=== PATIENT | male | born 1960 | race Caucasian/White ===

== ENCOUNTER 2020-06-09 09:09 | Emergency (ER) | payer MEDICAID ==
[~2020-06-09] VITALS: Ht 185.4 cm; Wt 90.0 kg
[2020-06-09 10:14] LABS: BASOPHILS % (AUTO) 0.4 % (0-1); EOSINOPHILS # (AUTO) 0.3 X10'3 (0-0.9); EOSINOPHILS % (AUTO) 2.4 % (0-6); HEMATOCRIT 44.8 % (42.0-52.0); HEMOGLOBIN 14.9 g/dl (14.0-17.9); LYMPHOCYTES # (AUTO) 1.5 X10'3 (1.1-4.8); LYMPHOCYTES % (AUTO) 12.8 % (21-51); MEAN CORPUSCULAR HEMOGLOBIN 30.5 PG (27.0-31.0); MEAN CORPUSCULAR HGB CONC 33.3 g/dL (33.0-36.5); MEAN CORPUSCULAR VOLUME 91.5 FL (78-98); MEAN PLATELET VOLUME 8.6 FL (7.4-10.4); MONOCYTES # (AUTO) 1.5 X10'3 (0-0.9); MONOCYTES % (AUTO) 13.3 % (2-12); NEUTROPHILS # (AUTO) 8.3 X10'3 (1.8-7.7); NEUTROPHILS % (AUTO) 71.1 % (42-75); PLATELET COUNT 337 X10'3 (140-440); RED BLOOD COUNT 4.89 X10'6 (4.70-6.10); RED CELL DISTRIBUTION WIDTH 13.4 % (11.5-14.5); WHITE BLOOD COUNT 11.6 X10'3 (4.5-11.0)
[2020-06-09 10:22] LABS: ALANINE AMINOTRANSFERASE 19 U/L (12-78); ALBUMIN 3.8 G/DL (3.4-5.0); ALKALINE PHOSPHATASE 54 IU/L (46-116); ANION GAP 10 (8-16); ASPARTATE AMINO TRANSFERASE 17 U/L (10-37); BILIRUBIN,TOTAL 0.8 MG/DL (0.1-1.0); BLOOD UREA NITROGEN 14 MG/DL (7-18); BUN/CREATININE RATIO 14.1 (5.4-32.0); CALCIUM 8.7 MG/DL (8.5-10.1); CHLORIDE 102 MMOL/L (99-107); CREATININE 0.99 MG/DL (0.60-1.10); GLUCOSE 110 MG/DL (70-104); POTASSIUM 4.5 MMOL/L (3.5-5.1); SODIUM 139 MMOL/L (135-145); TOTAL CARBON DIOXIDE 26.8 MMOL/L (24-32); TOTAL PROTEIN 7.8 G/DL (6.4-8.2); eGFR 78 ML/MIN
[2020-06-09 10:27] LABS: D-DIMER 0.65 MG/L FEU (0-0.50)
[2020-06-09] MEDS ORDERED: iohexol 350MG/ML 100ml bottle IV ONE (10:55)
--- NOTE | 2020-06-09 11:37 | NUR ---
To CT with tech
--- NOTE | 2020-06-09 11:47 | NUR ---
BACK FROM CT AT THIS TIME VIA WHEELCHAIR. NO SIGNS OF DISTRESS NOTED.
--- NOTE | 2020-06-09 12:12 | NUR ---
Pt resting comfortably in room, per Dr. Hernandez, second trop drawn now. Pt has had CT and VAS completed at this time.
[2020-06-09 13:00] VITALS: BP 113/74
== END 2020-06-09 13:38 | disposition home or self-care (01) ==
LOC: ER 09:11
DX: R07.89 Other chest pain (principal)
CPT/HCPCS: 36415; 71045; 71275; 80053; 83880; 84484; 85025; 85379; 93005; 93971; 99285; Q9967

== ENCOUNTER 2023-03-25 03:43 | Emergency (ER) | payer MEDICAID ==
[~2023-03-25] VITALS: Ht 180.3 cm; Wt 87.4 kg
[2023-03-25 04:20] LABS: BASOPHILS # (AUTO) 0.1 X10'3 (0-0.2); BASOPHILS % (AUTO) 1.2 % (0-1); EOSINOPHILS # (AUTO) 0.3 X10'3 (0-0.9); EOSINOPHILS % (AUTO) 4.4 % (0-6); HEMATOCRIT 39.5 % (42.0-52.0); HEMOGLOBIN 13.4 g/dl (14.0-17.9); LYMPHOCYTES # (AUTO) 1.2 X10'3 (1.1-4.8); LYMPHOCYTES % (AUTO) 16.4 % (21-51); MEAN CORPUSCULAR HEMOGLOBIN 31.6 PG (27.0-31.0); MEAN CORPUSCULAR HGB CONC 34.1 g/dL (33.0-36.5); MEAN CORPUSCULAR VOLUME 92.7 FL (78-98); MEAN PLATELET VOLUME 8.1 FL (7.4-10.4); MONOCYTES # (AUTO) 1.2 X10'3 (0-0.9); MONOCYTES % (AUTO) 16.4 % (2-12); NEUTROPHILS # (AUTO) 4.7 X10'3 (1.8-7.7); NEUTROPHILS % (AUTO) 61.6 % (42-75); PLATELET COUNT 325 X10'3 (140-440); RED BLOOD COUNT 4.26 X10'6 (4.70-6.10); RED CELL DISTRIBUTION WIDTH 15.2 % (11.5-14.5); WHITE BLOOD COUNT 7.6 X10'3 (4.5-11.0)
[2023-03-25 04:30] LABS: ALANINE AMINOTRANSFERASE 37 U/L (12-78); ALBUMIN 3.7 G/DL (3.4-5.0); ALKALINE PHOSPHATASE 66 IU/L (46-116); ANION GAP 9 (8-16); ASPARTATE AMINO TRANSFERASE 20 U/L (10-37); BILIRUBIN,TOTAL 0.5 MG/DL (0.1-1.0); BLOOD UREA NITROGEN 19 MG/DL (7-18); BUN/CREATININE RATIO 18.3 (10.0-20.0); CALCIUM 9.3 MG/DL (8.5-10.1); CHLORIDE 102 MMOL/L (99-107); CREATININE 1.04 MG/DL (0.60-1.10); GLUCOSE 124 MG/DL (70-104); POTASSIUM 4.1 MMOL/L (3.5-5.1); SODIUM 136 MMOL/L (135-145); TOTAL CARBON DIOXIDE 24.7 MMOL/L (24-32); TOTAL PROTEIN 7.4 G/DL (6.4-8.2); eCRCL 79 ML/MIN; eGFR 73 ML/MIN
[2023-03-25 04:37] LABS: PRO BRAIN NATRIURETIC PEPTIDE 69 PG/ML (0-125)
[2023-03-25] MEDS ORDERED: acetaminophen 325mg tablet PO ONE (05:10)
[2023-03-25] MEDS ORDERED: LORazepam 2 mg/ml vial IV ONE (05:10)
[2023-03-25] MEDS ORDERED: nitroGLYCERIN 0.2mg/hour patch TD ONE (05:10)
[2023-03-25] MEDS ORDERED: metoclopramide 5 mg/ml inj IV ONE (05:10)
[2023-03-25] MEDS ORDERED: morphine 4 MG/ML inj SYRINge IV ONE (05:10)
[2023-03-25] MEDS ORDERED: famotidine/PF 10 mg/ml inj IV ONE (05:10)
[2023-03-25] MEDS ORDERED: aspirin 81mg tab.chew PO ONE (05:10)
[2023-03-25] MEDS ORDERED: normal saline 1000ML IV soln IVB ONE (05:10)
[2023-03-25] MEDS ORDERED: iohexol 350 MG/ML 50ML vial IV ONE (05:22)
[2023-03-25] MEDS ORDERED: iohexol 350MG/ML 100ml bottle IV ONE (05:22)
[2023-03-25 07:15] VITALS: BP 133/78; PULSE 82; O2SAT 99
[2023-03-25 07:20] VITALS: RESP 16
--- NOTE | 2023-03-25 07:53 | NUR ---
0637 recieved report from sterling clark assuming care of pt
[2023-03-25 07:59] LABS: APTT 27 SECONDS (22-32); INR 1.1 INR; PROTHROMBIN TIME 11.4 SECONDS (9.0-12.0)
[2023-03-25 08:08] LABS: PHOSPHORUS 4.3 MG/DL (2.3-4.5)
[2023-03-25] MEDS ORDERED: IBUP-1984 PO ×3 (08:46→08:58)
[2023-03-25 09:14] VITALS: TEMP 97.8
== END 2023-03-25 09:17 | disposition home or self-care (01) ==
LOC: ER 03:44
DX: M54.2 Cervicalgia (principal); R07.89 Other chest pain
CPT/HCPCS: 36415; 70498; 71045; 71275; 80053; 83690; 83880; 84100; 84484; 85025; 85610; 85730; 93005; 96374; 96375; 99285; J2060; J2270; J2765; J3490; J7030; Q9967; 70496; 96361

== ENCOUNTER 2024-11-14 10:24 | Emergency (ER) | payer MEDICAID ==
[~2024-11-14] VITALS: Ht 180.3 cm; Wt 106.5 kg
[~2024-11-14 10:24] MED LIST: IBUP-1984 PO
[2024-11-14 10:27] VITALS: BP 147/72; PULSE 102; RESP 18; TEMP 97.6; O2SAT 97
--- NOTE | 2024-11-14 13:55 | Physician Documentation ---
History of Present Illness ~ Chief Complaint: Groin Pain Stated Complaint: GROIN PAIN Time Seen by MD: 12:12 Primary Medical Doctor: Dr. Montgomery, [facility] This 64-year-old male presents with right groin pain progressively worsening over the last 2-3 weeks though present for the last several months, patient reports he has received a workup outpatient through his primary care in [facility] though without a definitive result, though patient reports he has now moved to this area from [facility]. Patient reports history of nondistended right testicle and prostate cancer treated in 2021. Patient reports no abdominal pain and no fever. Patient reports no other acute symptoms or concerns including no dysuria. Medication Reconciliation Allergies: Coded Allergies: No Known Allergies (Unverified , 11/14/24) Scheduled Ibuprofen* (Motrin*), 400 MG PO Q6H Sulfamethoxazole/Trimethoprim (Bactrim Ds Tablet), 1 TAB PO Q12H Past Medical History Past Medical History: *CANCER* (Prostate) Smoking Status: Never smoker Review of Systems ROS Groin pain as stated above in the HPI, otherwise all systems are reviewed and negative. Physical Exam Vital Signs: Temperature: 97.6, Source: Temporal, Heart Rate: 102, Respiratory Rate: 18, BP: 147/72, Pulse Oximetry: 97, Weight: 106.450 Physical Exam VITALS: Reviewed and as above. GENERAL: Alert, nontoxic appearing, no apparent distress. RESPIRATORY: No increased work of breathing, no respiratory distress, speaking in full clear sentences GI: Nondistended, soft, nontender to palpation, no rebound, no guarding, bowel sounds present : Left testicle nontender to palpation, right scrotum no mass felt with testicle absent, tenderness to palpation into the pelvic ring. Progress Results/Orders Results/Orders Orders - BREANNE COLINDRES Us Testic/W/Duplex (11/14/24 13:47) Completed Orders - BREANNE COLINDRES Acetaminophen 325mg Tablet (Tylenol Tabl (11/14/24 13:50) Us Testic/W/Duplex (11/14/24 13:47) Cbc/Diff (11/14/24 13:47) CMP (11/14/24 13:47) Medications Received in ER Medications (Trade) Dose Ordered Sig/Vincent Route PRN Reason Start Time Stop Time Status Last Admin Dose Admin (Tylenol tablet) 975 mg ONCE ONCE PO 11/14/24 13:50 11/14/24 13:51 DC 11/14/24 14:38 975 MG Vital Signs 11/14/24 11/14/24 10:27 12:45 Temp 97.6 Pulse 102 Resp 18 B/P (MAP) 147/72 Pulse Ox 97 Laboratory Tests Test 11/14/24 14:03 White Blood Count 6.3 Red Blood Count 5.66 Hemoglobin 16.5 Hematocrit 49.2 Mean Corpuscular Volume 87.0 Mean Corpuscular Hemoglobin 29.2 Mean Corpuscular Hemoglobin Concent 33.6 Red Cell Distribution Width 15.7 H Platelet Count 286 Mean Platelet Volume 8.4 Neutrophils (%) (Auto) 59.6 Lymphocytes (%) (Auto) 21.6 Monocytes (%) (Auto) 13.7 H Eosinophils (%) (Auto) 3.9 Basophils (%) (Auto) 1.2 H Neutrophils # (Auto) 3.8 Lymphocytes # (Auto) 1.4 Monocytes # (Auto) 0.9 Eosinophils # (Auto) 0.2 Basophils # (Auto) 0.1 CBC Comment Sodium Level 136 Potassium Level 4.8 Chloride Level 101 Carbon Dioxide Level 25.0 Anion Gap 10 Blood Urea Nitrogen 22 H Creatinine 1.34 H Estimated GFR/1.73 m2 54 BUN/Creatinine Ratio 16.4 Glucose Level 123 H Calcium Level 8.3 L Total Bilirubin 1.2 H Aspartate Amino Transf (AST/SGOT) 35 Alanine Aminotransferase (ALT/SGPT) 57 Alkaline Phosphatase 64 Total Protein 7.6 Albumin 3.8 Globulin 3.8 Albumin/Globulin Ratio 1.0 L Chemistry Comments EKG/XRAY/CT/US/VASC/MRI Ultrasound : Impression ULTRASOUND OF SCROTUM AND CONTENTS. INDICATION: Right Groin Pain COMPARISON: None TECHNIQUE: Multiple real-time grayscale sonographic and color and duplex Doppler images of the scrotum and its contents were obtained. FINDINGS: The right testicle measures 2.0 x 1.3 x 1.9 cm. The left testicle measures 3.3 x 1.9 x 2.5 cm. Hypoechoic structure in the right testicle measures 0.3 cm possibly representing a spermatocele. Otherwise, Both testicles demonstrate homogeneous echotexture without evidence of focal lesions. The right epididymal head measures 1.1 cm. The left epididymal head measures 1.3 cm. Subsequent color and duplex Doppler interrogation of the testes demonstrated s ymmetric normal vascular flow to both testicles. No focal areas of hyperemia were seen. IMPRESSION: Right epididymis is heterogeneous in appearance possibly representing epididymitis. Clinical correlation advised. Electronically Signed by:OWEN MCCRAY MD Date & Time: 11/14/24 1501 Dictated by: OWEN MCCRAY MD Dictation date and time: 11/14/24 1501 Medical Decision Making Findings This 64-year-old male with history of prostate cancer and undescended right testicle presented with several months of right groin pain that has recently worsened, physical exam demonstrated pain in the pelvic ring where undescended testicle dislocated, ultrasound of the area did demonstrate evidence of epididymitis without evidence of testicular torsion, though left testicle was nontender and had a normal exam. Remainder of physical exam was benign and labs did not demonstrate evidence of systemic infection, or significant metabolic or electrolyte derangement. Vital signs are stable. Patient is appropriate for outpatient follow up. Patient discharged on course of antibiotics for epididymitis and is to follow up with his urologist Dr. Gipson along with his primary care provider for further workup. Urinary Diff Dx:Considerations: Include: Impaction, Musculoskeletal pain, Pancr eatitis, Prostatitis, Pyelonephritis Genital Diff Dx:Considerations: Include: Abscess, Cellulitis, Entrapment injury, Arianne's gangrene, Foreign body, Hydrocele, Inguinal hernia, Testicular torsion, Urinary retention, UTI Departure Disposition: HOME / SELF CARE / HOMELESS Impression: Primary Impression: Epididymitis Condition: Improved Discharge Instructions: Epididymitis Additional Instructions: Please take the antibiotics as prescribed, follow up with the primary care provider and Dr. Gipson in the next few days. Please return to the emergency department for any new or worsening concerning symptoms including but not limited to increased pain or if you develop a fever. Referrals: NO PRIMARY CARE PROVIDER (PCP) Prescriptions Sulfamethoxazole/Trimethoprim (Bactrim Ds Tablet) 800 Mg-160 Mg Tablet 1 TAB PO Q12H for 10 Days, #20 TAB Prov: BREANNE COLINDRES 11/14/24 Education Educated: Patient Educated regarding: diagnosis, treatment, prognosis, need for follow up Signature Scribe Signature: No scribe Attestation: The note accurately reflects work and decisions made by me.SHREYAS Gabriel 11/14/24 21:43 BREANNE COLINDRES November 14, 2024 13:54
[2024-11-14 14:16] LABS: BASOPHILS # (AUTO) 0.1 X10'3 (0-0.2); BASOPHILS % (AUTO) 1.2 % (0-1); EOSINOPHILS # (AUTO) 0.2 X10'3 (0-0.9); EOSINOPHILS % (AUTO) 3.9 % (0-6); HEMATOCRIT 49.2 % (42.0-52.0); HEMOGLOBIN 16.5 g/dl (14.0-17.9); LYMPHOCYTES # (AUTO) 1.4 X10'3 (1.1-4.8); LYMPHOCYTES % (AUTO) 21.6 % (21-51); MEAN CORPUSCULAR HEMOGLOBIN 29.2 PG (27.0-31.0); MEAN CORPUSCULAR HGB CONC 33.6 g/dL (33.0-36.5); MEAN PLATELET VOLUME 8.4 FL (7.4-10.4); MONOCYTES # (AUTO) 0.9 X10'3 (0-0.9); MONOCYTES % (AUTO) 13.7 % (2-12); NEUTROPHILS # (AUTO) 3.8 X10'3 (1.8-7.7); NEUTROPHILS % (AUTO) 59.6 % (42-75); PLATELET COUNT 286 X10'3 (140-440); RED BLOOD COUNT 5.66 X10'6 (4.70-6.10); RED CELL DISTRIBUTION WIDTH 15.7 % (11.5-14.5); WHITE BLOOD COUNT 6.3 X10'3 (4.5-11.0)
[2024-11-14 14:32] LABS: ALANINE AMINOTRANSFERASE 57 U/L (12-78); ALBUMIN 3.8 G/DL (3.4-5.0); ALKALINE PHOSPHATASE 64 IU/L (46-116); ANION GAP 10 (8-16); ASPARTATE AMINO TRANSFERASE 35 U/L (10-37); BILIRUBIN,TOTAL 1.2 MG/DL (0.1-1.0); BLOOD UREA NITROGEN 22 MG/DL (7-18); BUN/CREATININE RATIO 16.4 (10.0-20.0); CALCIUM 8.3 MG/DL (8.5-10.1); CHLORIDE 101 MMOL/L (99-107); CREATININE 1.34 MG/DL (0.60-1.10); GLUCOSE 123 MG/DL (70-104); POTASSIUM 4.8 MMOL/L (3.5-5.1); SODIUM 136 MMOL/L (135-145); TOTAL PROTEIN 7.6 G/DL (6.4-8.2); eCRCL 60 ML/MIN; eGFR 54 ML/MIN
[2024-11-14] MEDS: acetaminophen 325mg tablet PO ONE (14:38)
--- NOTE | 2024-11-14 15:04 | RADIOLOGY REPORT ---
ULTRASOUND OF SCROTUM AND CONTENTS. INDICATION: Right Groin Pain COMPARISON: None TECHNIQUE: Multiple real-time grayscale sonographic and color and duplex Doppler images of the scrotu m and its contents were obtained. FINDINGS: The right testicle measures 2.0 x 1.3 x 1.9 cm. The left testicle measures 3.3 x 1.9 x 2.5 cm. Hypoechoic structure in the right testicle measures 0.3 cm possibly representing a spermatocele. Oth erwise, Both testicles demonstrate homogeneous echotexture without evidence of focal lesions. The right epididymal head measures 1.1 cm. The left epididymal head measures 1.3 cm. Subsequent color and duplex Doppler interrogation of the testes demonstrated symmetric normal vascula r flow to both testicles. No focal areas of hyperemia were seen. IMPRESSION: Right epididymis is heterogeneous in appearance possibly representing epididymitis. Clinical correlat ion advised.
[2024-11-14] MEDS ORDERED: SULF1TAB49 PO (15:31)
== END 2024-11-14 15:44 | disposition home or self-care (01) ==
LOC: ER 10:25
DX: N45.1 Epididymitis (principal); Z79.899 Other long term (current) drug therapy
CPT/HCPCS: 36415; 76870; 80053; 85025; 93976; 99284

== ENCOUNTER 2025-03-18 18:52 | Inpatient (IN) | payer MEDICAID ==
[~2025-03-18] VITALS: Ht 180.3 cm; Wt 109.1 kg
--- NOTE | 2025-03-18 19:09 | ELECTROCARDIOGRAPH REPORT ---
[facility] Test Date: 2025-03-18 Test Time: 18:56:37 Pat Name: JOSLYN BISHOP Department: EMERGENCY ROOM Room: [place] [address] Gender: M Account General Manager: PM : 1960 Requested By: ELLE NOBLE Order Number: [id number] Reading MD: Dr. Clarence Wong Measurements Intervals [place] Rate: 68 P: 62 CO: 160 QRS: 57 QRSD: 73 T: 70 QT: 369 QTc: 393 Interpretive Statements Sinus rhythm Electronically Signed On 03-28-2025 21:53:[address] Clarence Wong Please click the below link to view image of tracing.
[2025-03-18 19:33] LABS: MEAN PLATELET VOLUME 8.3 FL (7.4-10.4); RED CELL DISTRIBUTION WIDTH 13.7 % (11.5-14.5)
[2025-03-18 19:42] LABS: CREATININE 1.24 MG/DL (0.60-1.10); TOTAL CARBON DIOXIDE 28.5 MMOL/L (24-32); eCRCL 65 ML/MIN; eGFR 59 ML/MIN
[2025-03-18 19:51] LABS: PRO BRAIN NATRIURETIC PEPTIDE 117 PG/ML (0-125)
--- NOTE | 2025-03-18 19:56 | RADIOLOGY REPORT ---
CHEST RADIOGRAPH Indication: CP Technique: Single frontal view of the chest was obtained COMPARISON: XR CHEST 1 VIEW on DOS: 06/07/24, CTA CHEST on DOS: 03/24/24, XR CHEST 2 VIEWS on DOS: 03/24/24, CT- LOWDOSE LUNG CANCER SCREEN on DOS: 10/21/23, XR CHEST 1 VIEW on DOS: 07/10/23 FINDINGS: Lungs and pleural spaces are clear. Cardiac silhouette and lupe are within normal limits. Bones and soft tissues demonstrate no significant abnormality. IMPRESSION: 1. No acute disease.
--- NOTE | 2025-03-18 20:13 | Physician Documentation ---
History of Present Illness ~ Chief Complaint: Chest Wall Pain Stated Complaint: ABD PAIN AND NUMBNESS ON LEFT SIDE Time Seen by MD: 20:12 Primary Medical Doctor: Dr. Montgomery, [facility] Patient presents to the emergency room with one-week history of abdominal pain and no paresthesias of the left abdomen. No prior instances. He does endorse some constipation over the past month. No weakness. No stumbling. Medication Reconciliation Allergies: Coded Allergies: No Known Allergies (Unverified , 11/14/24) Scheduled Ibuprofen* (Motrin*), 400 MG PO Q6H Miscellaneous Medications Rivaroxaban (Xarelto), (Reported) Past Medical History Past Medical History: *CANCER* Review of Systems ROS All review of systems negative except as per [facility] Physical Exam Vital Signs: Temperature: 98.3, Heart Rate: 88, Respiratory Rate: 14, BP: 156/98, Pulse Oximetry: 98, Weight: 109.090 Oxygen Flow Rate: 0 Physical Exam General: Patient is awake, alert, oriented x4 in no acute distress and well appearing.~ Head: Normocephalic and atraumatic. Eyes: Conjunctival normal. EOMI. PERRL. ENT: Mucous membranes moist. Neck: Supple, trachea is midline. Chest: Clear to auscultation bilaterally without rales, rhonchi, or wheezes. There is no accessory muscle use or retractions. Cardiac: RRR without murmurs, gallops, or rubs. Abd: Soft, nondistended, nontender, with normoactive bowel sounds. No guarding, rebound, or rigidity. Neuro: Cranial nerves II-XII grossly intact. No focal neuro deficits. Patient ambulating without difficulty. Progress Results/Orders Results/Orders Orders - MATTHEW LARSON MD Straight Cath For Urine Sample (03/18/25 18:56) Chest,Single View (03/18/25 19:40) Monitor (03/18/25 19:08) Saline Lock (03/18/25 19:08) Oxygen (03/18/25 19:08) Page Hospitalist (03/18/25 20:52) Fill Out Med Reconciliation (03/18/25 20:52) Completed Orders - MATTHEW LARSON MD Urinalysis, Cult If Indicated (03/18/25 18:56) Cbc/Diff (03/18/25 18:56) Lipase (03/18/25 18:56) CMP (03/18/25 18:56) Chest,Single View (03/18/25 19:40) BMP (03/18/25 19:08) PBNP (03/18/25 19:08) Electrocardiogram (03/18/25 19:08) Hs Troponin I W Calculations (03/18/25 19:08) Hs Troponin I W Calculations (03/18/25 21:08) Hs Troponin I W Calculations (03/18/25 22:08) Hgb A1c (03/18/25 19:10) MG (03/18/25 19:10) Vital Signs 03/18/25 03/18/25 03/18/25 19:03 20:47 21:00 Temp 98.3 Pulse 88 76 Resp 14 18 16 B/P (MAP) 156/98 Pulse Ox 98 98 O2 Flow Rate 0 0 Laboratory Tests Test 03/18/25 19:10 03/18/25 20:59 03/18/25 21:50 03/18/25 21:53 White Blood Count 7.3 Red Blood Count 5.14 Hemoglobin 16.4 Hematocrit 47.9 Mean Corpuscular Volume 93.1 Mean Corpuscular Hemoglobin 32.0 H Mean Corpuscular Hemoglobin Concent 34.3 Red Cell Distribution Width 13.7 Platelet Count 336 Mean Platelet Volume 8.3 Neutrophils (%) (Auto) 53.2 Lymphocytes (%) (Auto) 24.6 Monocytes (%) (Auto) 12.8 H Eosinophils (%) (Auto) 8.1 H Basophils (%) (Auto) 1.3 H Neutrophils # (Auto) 3.9 Lymphocytes # (Auto) 1.8 Monocytes # (Auto) 0.9 Eosinophils # (Auto) 0.6 Basophils # (Auto) 0.1 CBC Comment Prothrombin Time 11.6 INR International Normalized Ratio 1.1 Activated Partial Thromboplast Time 30 D-Dimer 0.37 D-Dimer Comment Coagulation Comments Sodium Level 140 Potassium Level 4.4 Chloride Level 102 Carbon Dioxide Level 28.5 Anion Gap 10 Blood Urea Nitrogen 19 H Creatinine 1.24 H Estimated GFR/1.73 m2 59 BUN/Creatinine Ratio 15.3 Glucose Level 109 H Hemoglobin A1c 6.0 Calcium Level 9.0 Magnesium Level 2.0 Total Bilirubin 0.8 Aspartate Amino Transf (AST/SGOT) 36 Alanine Aminotransferase (ALT/SGPT) 64 Alkaline Phosphatase 65 Troponin I High Sensitivity 5 5 6 Pro-B-Type Natriuretic Peptide 117 Total Protein 7.9 Albumin 3.8 Globulin 4.1 Albumin/Globulin Ratio 0.9 L Lipase 26 Chemistry Comments Troponin I High Sens Percent Delta 0 20 Troponin I Hi Sens Absolute Change 0 1 Urine Specimen Description Urinal Urine Color Yellow Urine Clarity Clear Urine pH 5.5 Urine Specific [place] 1.020 Urine Protein Negative Urine Glucose (UA) Negative Urine Ketones Negative Urine Occult Blood Negative Urine Nitrite Negative Urine Bilirubin Negative Urine Urobilinogen 0.2 Urine Leukocyte Esterase Negative Urine Culture Indicated Not ind Volume Urine Centrifuged 10 ml Urine Comment Urine Opiates Screen Negative Urine Methadone Screen Negative Urine Fentanyl Screen Negative Urine Barbiturates Screen Negative Urine Phencyclidine Screen Negative Urine Amphetamines Screen Negative Urine Benzodiazepines Screen Negative Urine Cocaine Screen Negative Urine Cannabinoids Screen Negative Drug Screen Comment Medical Decision Making Findings Patient presented to the emergency room with abdominal pain and paresthesia in his left side. Differentials include transverse myelitis, multiple sclerosis, stroke, radiculopathy therefore neurologist consulted who recommends MRI. P atient does not have an ability to follow up outpatient. Departure Admitted to Inpatient Unit: yes, to hospitalist Impression: Primary Impression: Paresthesias Referrals: NO PRIMARY CARE PROVIDER (PCP) Signature Scribe Signature: No scribe Attestation: The note accurately reflects work and decisions made by me.Matthew Larson MD 03/18/25 20:53 MATTHEW LARSON MD Mar 18, 2025 20:13
--- NOTE | 2025-03-18 20:56 | [facility] CONSULT REPORT ---
[facility] Procedure Note [facility] Procedure Note Consult [facility] Note # Demographics Consult Type: General Neurology Patient Location: Emergency Room First Name: JOSLYN Last Name: EDNA Date of : 1960 Age: 64 Gender: Male Facility: [facility] Time of Initial Page (): 03/18/2025 20:24 First Contact with Site (): 03/18/2025 20:24 # HPI Chief Complaint: - numbness History: 64 y/o M presented with numbness in the L lateral torso x 1 week. He had some b/l anterior abdominal pain prior to it starting. He states he has some pain starting around the breast bone centrally with associated numbness radiating down the L torso and around to the L side of his back. He has some neck pain. He denies recent fevers, flu like symptoms but does endorse sick contacts. He has some numbness radiating down the L leg associated with pain which starts in the hip and goes down the leg. Denies weakness, slurred speech, word finding difficulty, headaches, difficulty ambulating, trauma to the back or lifting anything heavier but says he started splitting firewood a few weeks ago which is different than his routine. # Scores Time of exam and NIHSS (): 03/18/2025 20:36 Level of Consciousness 1a: [0] = Alert; keenly responsive LOC Questions 1b: [0] = Answers both questions correctly LOC Commands 1c: [0] = Performs both tasks correctly Best Gaze 2: [0] = Normal Visual 3: [0] = No visual loss Facial Palsy 4: [0] = Normal symmetrical movements Motor Arm Left 5a: [0] = No drift Motor Arm Right 5b: [0] = No drift Motor Leg Left 6a: [0] = No drift Motor Leg Right 6b: [0] = No drift Limb Ataxia 7: [0] = Absent Sensory 8: [0] = Normal Best Language 9: [0] = No aphasia Dysarthria 10: [0] = Normal Extinction and Inattention 11: [0] = No abnormality NIHSS Total: 0 # Exam SBP: 156 DBP: 98 # PMH-FH-SH Past Medical History: PE Social History: prior meth user # Assessment Impression: - Radiculopathy (numbness starts in T4 area) vs. transverse myelitis vs. cardiac given central chest pain # Plan Labs: - troponin - B12 - TSH - ua - CBC - comprehensive metabolic panel - urine drug screen - ESR - liver function tests Imaging: (urgency: routine): - MRI C spine - MRI T spine - MRI L spine with and without contrast Therapy/Evaluation: - PT/OT evaluation Other: - If patient has any neurological deterioration please call me back immediately - telemetry monitoring - I have discussed my recommendations with the referring provider - neurology referral as outpatient # Logistics Attestation of consult completion: The patient is located at: [facility]. Facility staff participated in the visit. I performed this telemedicine visit from my offsite office utilizing interactive 2 way audio and visual telecommunication technology at the request of the onsite emergency room provider. Total time spent in telemedicine encounter: I spent 25 minutes reviewing clinical data and/or imaging, obtaining history, examining the patient, communicating with the onsite care team, and in preparation of this report. # Demographics First Name: JOSLYN Last Name: BISHOP Facility: [facility] Electronically signed at 03/18/2025 20:54 ([place] Time) by Mukesh Gallego MD Neuro Consult Order placed for: Yes MUKEHS GALLEGO MD Mar 18, 2025 20:56
[2025-03-18 22:13] LABS: LEUKOCYTE ESTERASE ,URINE NEGATIVE (Neg); NITRITES, URINE NEGATIVE (Neg); OCCULT BLOOD,URINE NEGATIVE (Neg)
[2025-03-18] MEDS ORDERED: potassium Cl 40MEQ/1/2NS 520ml 520 ML IV PRN (22:20)
[2025-03-18] MEDS ORDERED: mag hydrox/Alum hydrox/simeth 30ml oral suspension PO PRN (22:20)
[2025-03-18] MEDS ORDERED: magnesium Cl slow-release 64mg tablet PO PRN (22:20)
[2025-03-18] MEDS ORDERED: magnesium sulf-water 2g/50mL 50 ML IV PRN (22:20)
[2025-03-18] MEDS ORDERED: magnesium sulf-water 4G/100mL 100 ML IV PRN (22:20)
[2025-03-18] MEDS ORDERED: potassium Cl 20 mEq SR tablet PO PRN ×2 (22:20)
[2025-03-18] MEDS ORDERED: metoprolol tartrate 1mg/ml inj IV PRN (22:25)
[2025-03-18] MEDS ORDERED: aminophylline 250mg/10ml inj. IV PRN (22:25)
[2025-03-18 22:27] LABS: UA COLLECTION TYPE URINAL
[2025-03-18] MEDS ORDERED: morphine 4 MG/ML inj SYRINge IV PRN ×2 (22:35)
[2025-03-18 22:38] LABS: APTT 30 SECONDS (22-32); INR 1.1 INR
[2025-03-18 22:52] LABS: URINE AMPHETAMINE SCREEN NEGATIVE (Neg); URINE BARBITUATE SCREEN NEGATIVE (Neg); URINE BENZODIAZEPINES SCREEN NEGATIVE (Neg); URINE CANNABINOID SCREEN NEGATIVE (Neg); URINE COCAINE SCREEN NEGATIVE (Neg); URINE METHADONE SCREEN NEGATIVE (Neg); URINE OPIATE SCREEN NEGATIVE (Neg); URINE PHENCYCLIDINE SCREEN NEGATIVE (Neg)
--- NOTE | 2025-03-18 23:09 | HISTORY AND PHYSICAL-Residence ---
History & Physical Providers to CC Resident Creating Document: [facility] [place] RES ~ History of Present Illness [facility] Reason for Admit\\Complaint: Chest pain History of Present Illness This 64-year-old male presented to the ER with a chief concern of pain below the ribcage bilaterally on the anterior side. He mentioned that it is on and off for the last one year and is sharp shooting kind of pain. He usually gets the pain when he turns from [id number] and when he bends a lot while using the toilet paper. Mentions it as "I get pain when I turn the wrong way". Denies any pain with walking or at rest. Mentioned that the pain lasts for few minutes to hours. Had one episode of sharp left-sided chest pain that lasted for 2-3 seconds about few days back and it happened while he was at rest. Also, he has a new onset numbness and tingling sensation below the ribs on the left side. He noticed it when he woke up in the morning and touched it but could not feel it the normal way. The numbness persisted for the last three days. He also complained of on and off pain, numbness and tingling sensation along the posterior leg from hip to calf on the left side. It occurs with movement and lasts for few minutes and this has been there for the last 2-3 weeks. Sometimes has neck pain with the movement. Complains of occasional shortness of breath when he suddenly moves. Denies any increasing chest pain with a deep inspiration. Denies any trauma. Had one episode of fever few days back. Denies any jaw pain, nausea or vomiting, diarrhea, dizziness or fall, dysuria, abdominal pain or any other complaints. Generally walks by himself. Mentioned that he was recently diagnosed with right-sided epididymitis but outpatient f/u with urologist- denied that diagnosis. He also got a CT scan done outpatient for right-sided groin pain but was told that he has some colon thickening and he denied any colonoscopy in the past. Denies any diarrhea or bloody stool. Mentioned that he had diarrhea about few days back then had constipation today had brown stool. Complains of chronic right-sided groin pressure and has a right-sided undescended testis. Mentioned that he was 1st diagnosed with PE and DVT in 2019 and was given Xarelto. Mentioned that he was not adherent to the medication and he had recurrent PE in 2022. Now, mentioned that he continues to take Xarelto. He is unsure about any workup done for unprovoked DVT/PV. But, he also was diagnosed with prostate cancer in 2020. Denies any previous significant cardiac history. Mentioned that he was told he had a heart attack but then was told that it was secondary to PE in 2019. Allergies: Coded Allergies: No Known Allergies (Unverified , 11/14/24) Home Medications Home Medications Active Motrin* (Ibuprofen) 400 Mg Tablet 400 Mg PO Q6H 5 Days Past Medical History Past Medical History History of prostate cancer in 2020-s/p radiation therapy and hormonal therapy, right-sided epididymitis, DVT, PE, tobacco abuse Past Surgical History Surgical History Comment Cholecystectomy Past Social History Social History Comment Smoked about one pack of cigarettes per day for 50 years and quit last year in November. Drinks one beer in one week. Mentioned that he remotely smoked and snorted methamphetamine but is no longer abusing any recreational drugs ROS ROS Constitutional: No fever, chills, dizziness, weakness, weight gain or loss Eyes: No pain, erythema, discharge, blurring of vision ENT: No sore throat, epistaxis, tinnitus Cardiovascular: Chest pain below the ribs present. palpitations, syncope, lower extremity edema, paroxysmal nocturnal dyspnea Respiratory: No shortness of breath, cough, hemoptysis Gastrointestinal: Normal appetite. No nausea, vomiting, diarrhea, constipation, hematemesis, abdominal pain, bloating, melena or fresh blood Genitourinary: No frequency, urgency, nocturia, hematuria or dysuria Musculoskeletal: Has occasional neck pain with movement, episodic left-sided pain in the posterior like from hip to calf resident Integumentary: No change in skin, hair, nails. No swelling, bruising, abrasions Neurologic: Episodic Numbness and tingling sensation of chest and abdomen below the ribcage on the left side and posterior left lower extremity present. No headache, neck pain, weakness Psychiatric: No delusions, depression, loss of interest in normal activity or change in sleep pattern, hallucinations, suicidal ideations Endocrine: No fatigue, weakness, polydipsia, polyuria, change in appetite, heat or cold intolerance, sweating, dry skin Hematological: No bleeding, petechiae, bruising Allergies: No asthma or urticaria Exam Vitals: Vital Signs Date Time Temp Pulse Resp B/P (MAP) Pulse Ox O2 Delivery O2 Flow Rate FiO2 03/18/25 22:39 98.3 70 128/74 (92) 96 0 03/18/25 20:47 18 General: Alert and oriented x4. Central obesity HEENT: Normocephalic and atraumatic. Pupils equal round reactive to light and accommodation. Extraocular movements intact. Oral and nasal mucosa moist. Has no incisors in the upper jaw Neck: Trachea is in midline. No masses or JVD Chest: Bilateral normal breath sounds. No crackles, rhonchi or wheezes Cardiovascular: Regular rate and rhythm. S1-S2 normal. No rubs or murmurs Abdomen: Soft and nondistended. Mild tenderness in the left lumbar region. Normoactive bowel sounds. Mild erythema of scrotum but no swelling or tenderness. Undescended right testis Extremities: No cyanosis, clubbing or edema. Bilateral straight leg test negative. Bilateral Homans sign negative. Bilateral 1+ pedal pulse Central Nervous System: No gross sensory or motor deficits. Bilateral upper and lower extremity motor power 5/5. Denies any sensory abnormalities in bilateral upper and lower extremities. No cerebellar signs. Bilateral knee, ankle, biceps reflex-2. Musculoskeletal: No spinal or paraspinal tenderness Skin: Warm and dry Diagnostic Data Last Recorded Lab Results: [id number]/18/[id number] Diagnostic Data: Laboratory Tests Test 03/18/25 19:10 Prothrombin Time 11.6 SECONDS (9.0-12.0) INR International Normalized Ratio 1.1 INR Activated Partial Thromboplast Time 30 SECONDS (22-32) D-Dimer 0.37 MG/L FEU (0-0.50) D-Dimer Comment Coagulation Comments Advance Care Planning Advanced Care plannin - 30 Minutes Additional Plan Chest pain Numbness and tingling sensation below the left rib cage Numbness and tingling sensation along the posterior left lower extremities NIHSS -0 Tele neurology consulted with the ER. Recommended troponin, B12, TSH, UA, CBC, CMP, urine drug screen, ESR and LFTs and also imaging MRI C-spine, T-spine, L- spine with and without contrast Differential by the tele neurologist was radiculopathy vs transverse myelitis vs cardiac I Suspect at as mostly musculoskeletal pain or radiculopathy Troponin negative, ESR within normal limits, UA and urine tox negative, CMP showed some possible BECKI. Pending B12 and TSH Trops negative. EKG showed sinus rhythm with regular rate and without any significant ST or T-wave changes Ordered Head CT Ordered MRI head, C-spine, T-spine, L-spine with and without contrast Also ordered Lexiscan in a.m.. Heart score low-2 Ordered aspirin 324 mg p.o. once Consider starting regular aspirin 81 mg p.o. daily, beta augusto, statin if Lexiscan positive LDL and A1c pending Echocardiogram ordered as he also complains of occasional shortness of breaths Chest x-ray shows hyperinflation PT evaluation History of recurrent PEs and DVT History of prostate cancer-s/p radiation and hormonal therapy Patient mentioned that he had PE and DVT about 3-4 times Continue home medications Xarelto 20 mg p.o. daily D-dimer not elevated. So, not performing any chest CTA or venous ultrasound Had prostate cancer when he was diagnosed with PEs and DVTs Recommend getting outpatient workup done for thrombophilia considering recurrent PEs and DVTs Possible BECKI on CKD Continue saline at 100 cc/hour Remote history of meth abuse Urine tox negative Prophylaxis: Xarelto Diet: Heart healthy diet. NPO after midnight for Valorie Ny MD Internal Medicine Resident, PGY 3 Patient seen and evaluated using HIPPA compliant AV device Agree with plan as discussed with the resident Silver Ball MD Date of Service: Mar 19, 2025 Billing Provider: REINA CHEN MD, MANO[facility] RES Mar 18, 2025 23:09 SILVER BALL MD Mar 19, 2025 03:16
[2025-03-18] MEDS ORDERED: albuterol 2.5 MG/3 ML nebule NEB PRN (23:10)
[2025-03-19] VITALS (21 sets, daily range): BP systolic 122–162; BP diastolic 62–92; PULSE 58–82; RESP 12–22; TEMP 97–98.6; O2SAT 93–100
[2025-03-19] MEDS: HYDROcodone/acetaminophen 10/325mg tab PO PRN (00:28)
[2025-03-19] MEDS: normal saline 1000ml 1,000 ML IV SCH (00:29)
[2025-03-19] MEDS ORDERED: RIVA20TA (01:03)
[2025-03-19 03:07] LABS: MEAN PLATELET VOLUME 7.8 FL (7.4-10.4); RED CELL DISTRIBUTION WIDTH 13.7 % (11.5-14.5)
[2025-03-19 03:20] LABS: APTT 31 SECONDS (22-32); INR 1.3 INR
--- NOTE | 2025-03-19 03:25 | RADIOLOGY REPORT ---
EXAM: CT CT HEAD INDICATION: rule out any bleed HEADACHE TECHNIQUE: CT of the head without intravenous contrast. Radiation Dose : 1. Head: CT Dose: CTDI volume is 66.3 mGy. Dose-length product is 1184.04 mGy*cm The dose indicators for CT are the volume Computed Tomography (CT) Dose Index (CTDIvol) and the Dose Length Product (DLP), and are measured in units of mGy and mGy-cm, respectively. These indicators are not patient dose, but values generated from the CT scanner acquisition factors. The report includes radiation exposure data for exposures received during this examination. COMPARISON: None FINDINGS: There is no evidence of acute intracranial hemorrhage, extra-axial collection, mass effect, midline shift, herniation or hydrocephalus. The ventricles, sulci and cisterns are age appropriate. The lovelace-white differentiation is intact. The visualized paranasal sinuses and mastoid air cells are clear. The surrounding soft tissues and osseous structures are unremarkable. IMPRESSION: 1. No acute intracranial process. Radiation optimization: All CT scans at this facility use at least one of these dose optimization techniques: automated exposure control mA and/or kV adjustment per patient size (includes targeted exams where dose is matched to clinical indication) or iterative reconstruction.
[2025-03-19 03:31] LABS: CHOL/HDL RATIO 7.9 (0.00-4.99); CREATININE 1.11 MG/DL (0.60-1.10); LDL CHOLESTEROL 151 MG/DL (50-100); PHOSPHORUS 4.0 MG/DL (2.3-4.5); TOTAL CARBON DIOXIDE 28.5 MMOL/L (24-32); eCRCL 73 ML/MIN; eGFR 67 ML/MIN
[2025-03-19] MEDS: pantoprazole 40mg Tablet.DR PO SCH (07:30)
[2025-03-19] MEDS: K and/or MAG REPLACEMENT MC SCH (08:00)
[2025-03-19] MEDS: ipratropium/albuterol 3ml nebule NEB PRN (08:12)
[2025-03-19] MEDS: regadenoson 0.4mg/5ml syringe IV PRN (08:59)
--- NOTE | 2025-03-19 11:54 | RADIOLOGY REPORT ---
Procedure: OK NM MARK SCAN Exam Date: 03/19/2025 08:04 AM Reason for study/Clinical History: possible unstable angina Comparison Study: None Myocardial Perfusion Study with SPECT Technique: The patient received an intravenous injection of 8.8 mCi of technetium-99m sestamibi while at rest. After a short delay, SPECT tomographic images of the heart were obtained. The patient then went to the stress lab where they received an intravenous infusion of 0.[address] andard protocol. 35.7 mCi of technetium-99m sestamibi was injected intravenously immediately after the start of the lexiscan infusion. Gated SPECT tomographic images of the heart were acquired and processed. Findings: No reversible perfusion defect. End diastolic volume: 70 mL End systolic volume: 24 mL The left ventricular ejection fraction is 66 %. (normal greater than 50%) Impression: No reversible defect. The left ventricular ejection fraction is 66 %.
--- NOTE | 2025-03-19 16:35 | CARDIOLOGY REPORT ---
APPROVED REPORT EXAM: Comprehensive 2D, Doppler, and color-flow Echocardiogram. Patient Location: [facility] Heart Rate: 61 bpm Rhythm: NSR Indications CHEST PAIN PULMONARY EMBOLISM/DVT 2019 RADIOGRAPHIC TECHNOLOGIST: None. PRIOR ECHOCARDIOGRAM: None. 2D Dimensions RVDd 3.3 cm IVSd 1.2 (0.7-1.1cm) LVDd 4.5 cm PWd 1.2 (0.7-1.1cm) IVSs 1.6 (0.8-1.2cm) LVDs 3.0 (2.5-4.0cm) PWs 1.9 (0.8-1.2cm) LVOT Diameter 2.07 (1.8-2.4cm) LVEF(%) 63.7 (>50%) FS (%) 34.5 % SV 59.7 ml CO 4.1 L/min M-Mode Dimensions Left Atrium(MM) 4.82 (2.5-4.0cm) Aortic Root 3.67 (2.2-3.7cm) Aortic Cusp Exc 2.55 (1.5-2.0cm) Aortic Valve AoV Peak Isael. 110.5 cm/s AoV VTI 22.2 cm AO Peak GR. 4.9 mmHg AO Mean GR. 2 mmHg LVOT VTI 20.13 cm LVOT Peak Isael. 81.0 cm/s VEGA(VTI)/BSA 3.07 cm2/m2 VEGA (VTI) 3.07 cm2 Mitral Valve MV E Velocity 66.3 cm/s MV Peak Gr. 3 mmHg MV A Velocity 82.1 cm/s MV PHT 56 ms E/A Ratio 0.8 MVA (PHT) 3.93 cm2 MV VMax 82.6 cm/s LEFT VENTRICLE Normal LV size and function. Mild concentric hypertrophy. Overall LVEF is 60-65%. RIGHT VENTRICLE Right ventricle is mildly dilated with normal function. ATRIA Left atrium is moderately dilated. Right atrium is moderately dilated. AORTIC VALVE Trileaflet AV appears mildly sclerotic without stenosis. No insufficiency. MITRAL VALVE The mitral valve is normal in structure. Mild regurgitation. TRICUSPID VALVE TV appears structurally normal with mild regurgitation. PULMONIC VALVE Pulmonic valve is not well visualized. GREAT VESSELS Aortic root is mildly dilated. Ascending aorta is mildly dilated. The IVC is normal in size and collapses >50% with inspiration. PERICARDIUM Normal pericardium. No effusion. Other Information Study Quality: Poor Technically limited study due to Body habitus. Conclusion Overall LVEF is 60-65%. Normal LV size and function. Mild concentric hypertrophy. Right ventricle is mildly dilated with normal function. Trileaflet AV appears mildly sclerotic without stenosis. No insufficiency. The mitral valve is normal in structure. Mild regurgitation. TV appears structurally normal with mild regurgitation. Normal pericardium. No effusion.
--- NOTE | 2025-03-19 19:00 | PROGRESS NOTE ---
Daily Progress Note Providers to CC Feels better today, no pain, good appetite ~ Central Line/PICC still needed: No Mcintosh-Non Protocol Mcintosh Indications Met/Not Met: F/C Indications Not Met Antibiotic Timeout Antibiotic Ordered?: No MRSA Education MRSA Education Provided to pt: Yes Objective Vital Signs Date Time Temp Pulse Resp B/P (MAP) Pulse Ox O2 Delivery O2 Flow Rate FiO2 03/19/25 15:00 98.2 73 22 127/71 (89) 94 Room Air 03/19/25 08:18 0.0 03/19/25 08:13 21 Vital signs, stable ,afebrile. Pulse Oximetry reflects adequate oxygenation. BMI is 33, weight 109 kg General: well developed, well nourished. Awake , alert, and oriented x4, resting comfortably in the bed, in no acute distress . Skin: Warm, dry, no pallor, no rash or petechiae. HEENT: Atraumatic, normocephalic, EOMI, anicteric sclera B; pink conjunctiva; PERRLA, normal oropharynx, moist oral and nasal mucosa. Tympanic membrane , nose , throat clear. Neck: Trachea midline. Supple, full range of motion, no JVD, bruit , hepatojugular reflex , lymphadenopathy or masses, or other lesions Cardiac: Regular rhythm, regular rate no murmurs, rubs, or gallops. Normal S1 and S2, no S3 noticed. PMI is normal. Respiratory: Equal breath sounds bilaterally, no tachypnea; lungs clear to auscultation bilaterally, no wheezing ,rub or rales, or crackles. Chest wall is symmetric and without deformity. No signs of trauma. Chest wall is nontender. No signs of respiratory distress. Resonance is normal upon percussion bilaterally. Gastrointestinal: Abdomen symmetric, non-distended, soft, non-tender, normal bowel sounds x4 quadrant, normoactive, no hepatosplenomegaly , no masses , no bruit, no flank pain bilaterally. No voluntary guarding, rebound, or rigidity. No tenderness to percussion. No pulsatile masses. Equal femoral pulses. No Woodruff's sign or McBurney point tenderness. Back; no CVA tenderness bilaterally, no deformities. Neck and back are without deformity as well. No tenderness noted on palpation of the spinous processes. Spinous processes are midline. Cervical, thoracic, and lumbar paraspinal muscles are not tender and are without spasm. : normal external genitalia, without lesions, swelling, masses or tenderness. Musculoskeletal: Extremities, normal range of motion, non-tender, muscle strength 5/5 x 4. Negative Homans signs bilaterally on lower extremity. Distal pulses full symmetrical, no clubbing, cyanosis , edema. Neurological: Speech is clear, alert, and oriented x 4. No motor or sensory deficit, deep tendon reflexes normal, cerebellar intact. Cranial nerves II-XII intact. Psych: Alert and or appropriate, normal affect. Vascular: Good distal pulses, which are equal x4; capillary refill less than 2 seconds. Lymphatic, no lymphadenopathy. Result Diagram: 03/19/25 0258 03/19/25 0258 Coagulation Studies Laboratory Tests Test 03/18/25 19:10 03/19/25 02:58 D-Dimer 0.37 MG/L FEU (0-0.50) D-Dimer Comment Prothrombin Time 12.8 SECONDS (9.0-12.0) H INR International Normalized Ratio 1.3 INR Activated Partial Thromboplast Time 31 SECONDS (22-32) Coagulation Comments Problem\Assessment\Plan Plan Chest pain Numbness and tingling sensation below the left rib cage Numbness and tingling sensation along the posterior left lower extremities NIHSS -0 Tele neurology consulted with the ER. Recommended troponin, B12, TSH, UA, CBC, CMP, urine drug screen, ESR and LFTs and also imaging MRI C-spine, T-spine, L- spine with and without contrast Differential by the tele neurologist was radiculopathy vs transverse myelitis vs cardiac I Suspect at as mostly musculoskeletal pain or radiculopathy Troponin negative, ESR within normal limits, UA and urine tox negative, CMP showed some possible BECKI. Pending B12 and TSH Trops negative. EKG showed sinus rhythm with regular rate and without any significant ST or T-wave changes Ordered Head CT Ordered MRI head, C-spine, T-spine, L-spine with and without contrast Also ordered Lexiscan in a.m.. Heart score low-2 Ordered aspirin 324 mg p.o. once Consider starting regular aspirin 81 mg p.o. daily, beta augusto, Dyslipidemia, started on statins Echocardiogram ordered as he also complains of occasional shortness of breaths Chest x-ray shows hyperinflation PT evaluation History of recurrent PEs and DVT History of prostate cancer-s/p radiation and hormonal therapy Patient mentioned that he had PE and DVT about 3-4 times Continue home medications Xarelto 20 mg p.o. daily D-dimer not elevated. So, not performing any chest CTA or venous ultrasound Had prostate cancer when he was diagnosed with PEs and DVTs Recommend getting outpatient workup done for thrombophilia considering recurrent PEs and DVTs Possible BECKI secondary to vasomotor nephropathy Continue saline at 100 cc/hour Remote history of meth abuse Urine tox negative Prophylaxis: Xarelto Sepsis Screening Reassessment Date: Mar 19, 2025 Date of Service: Mar 19, 2025 Billing Provider: CELIA HERNÁNDEZ MD Common Visit Codes: [id number] INP/OBS CARE(HIGH) CELIA HERNÁNDEZ MD Mar 19, 2025 19:00
[2025-03-19] MEDS ORDERED: enoxaparin 40mg/0.4ml syringe SQ SCH (20:00)
[2025-03-20] VITALS (9 sets, daily range): BP systolic 113–141; BP diastolic 69–90; PULSE 72–84; RESP 13–18; TEMP 97.5–98.6; O2SAT 93–95
[2025-03-20] MEDS: ondansetron/PF 4mg/2ml inj IV PRN (04:11)
[2025-03-20 06:51] LABS: APTT 34 SECONDS (22-32); INR 1.3 INR; MEAN PLATELET VOLUME 8.3 FL (7.4-10.4); RED CELL DISTRIBUTION WIDTH 13.7 % (11.5-14.5)
[2025-03-20 07:02] LABS: CREATININE 1.07 MG/DL (0.60-1.10); PHOSPHORUS 4.1 MG/DL (2.3-4.5); TOTAL CARBON DIOXIDE 30.2 MMOL/L (24-32); eCRCL 75 ML/MIN; eGFR 70 ML/MIN
--- NOTE | 2025-03-20 19:26 | PROGRESS NOTE ---
Daily Progress Note Providers to CC Feels better today better sleep good appetite ~ Central Line/PICC still needed: No Mcintosh-Non Protocol Mcintosh Indications Met/Not Met: F/C Indications Not Met Antibiotic Timeout Antibiotic Ordered?: No MRSA Education MRSA Education Provided to pt: No Subjective As above Objective Vital Signs Date Time Temp Pulse Resp B/P (MAP) Pulse Ox O2 Delivery O2 Flow Rate FiO2 03/20/25 15:00 98.6 76 16 121/80 (94) 95 Room Air 03/20/25 08:48 0.0 03/20/25 08:43 21 Vital signs, stable ,afebrile. Pulse Oximetry reflects adequate oxygenation. General: well developed, well nourished. Awake , alert, and oriented x4, resting comfortably in the bed, in no acute distress . Skin: Warm, dry, no pallor, no rash or petechiae. HEENT: Atraumatic, normocephalic, EOMI, anicteric sclera B; pink conjunctiva; PERRLA, normal oropharynx, moist oral and nasal mucosa. Tympanic membrane , nose , throat clear. Neck: Trachea midline. Supple, full range of motion, no JVD, bruit , hepatojugular reflex , lymphadenopathy or masses, or other lesions Cardiac: Regular rhythm, regular rate no murmurs, rubs, or gallops. Normal S1 and S2, no S3 noticed. PMI is normal. Respiratory: Equal breath sounds bilaterally, no tachypnea; lungs clear to auscultation bilaterally, no wheezing ,rub or rales, or crackles. Chest wall is symmetric and without deformity. No signs of trauma. Chest wall is nontender. No signs of respiratory distress. Resonance is normal upon percussion bilaterally. Gastrointestinal: Abdomen symmetric, non-distended, soft, non-tender, normal bowel sounds x4 quadrant, normoactive, no hepatosplenomegaly , no masses , no bruit, no flank pain bilaterally. No voluntary guarding, rebound, or rigidity. No tenderness to percussion. No pulsatile masses. Equal femoral pulses. No Woodruff's sign or McBurney point tenderness. Back; no CVA tenderness bilaterally, no deformities. Neck and back are without deformity as well. No tenderness noted on palpation of the spinous processes. Spinous processes are midline. Cervical, thoracic, and lumbar paraspinal muscles are not tender and are without spasm. : normal external genitalia, without lesions, swelling, masses or tenderness. Musculoskeletal: Extremities, normal range of motion, non-tender, muscle strength 5/5 x 4. Negative Homans signs bilaterally on lower extremity. Distal pulses full symmetrical, no clubbing, cyanosis , edema. Neurological: Speech is clear, alert, and oriented x 4. No motor or sensory deficit, deep tendon reflexes normal, cerebellar intact. Cranial nerves II-XII intact. Psych: Alert and or appropriate, normal affect. Vascular: Good distal pulses, which are equal x4; capillary refill less than 2 seconds. Lymphatic, no lymphadenopathy. Result Diagram: 03/20/25 0603 03/20/25 0603 Coagulation Studies Laboratory Tests Test 03/18/25 19:10 03/20/25 06:03 D-Dimer 0.37 MG/L FEU (0-0.50) D-Dimer Comment Prothrombin Time 13.0 SECONDS (9.0-12.0) H INR International Normalized Ratio 1.3 INR Activated Partial Thromboplast Time 34 SECONDS (22-32) H Coagulation Comments Problem\Assessment\Plan Assessment/ Plan Chest pain, noncardiac Numbness and tingling sensation below the left rib cage Numbness and tingling sensation along the posterior left lower extremities NIHSS -0 Tele neurology consulted with the ER. Recommended troponin, B12, TSH, UA, CBC, CMP, urine drug screen, ESR and LFTs and also imaging MRI C-spine, T-spine, L- spine with and without contrast Differential by the tele neurologist was radiculopathy vs transverse myelitis vs cardiac I Suspect at as mostly musculoskeletal pain or radiculopathy Troponin negative, ESR within normal limits, UA and urine tox negative, CMP showed some possible BECKI. Pending B12 and TSH Trops negative. EKG showed sinus rhythm with regular rate and without any significant ST or T-wave changes Ordered Head CT Ordered MRI head, C-spine, T-spine, L-spine with and without contrast Also ordered Lexiscan in a.m.. Heart score low-2 Ordered aspirin 324 mg p.o. once Consider starting regular aspirin 81 mg p.o. daily, beta augusto, Dyslipidemia, started on statins Echocardiogram ordered as he also complains of occasional shortness of breaths Chest x-ray shows hyperinflation PT evaluation History of recurrent PEs and DVT History of prostate cancer-s/p radiation and hormonal therapy Patient mentioned that he had PE and DVT about 3-4 times Continue home medications Xarelto 20 mg p.o. daily D-dimer not elevated. So, not performing any chest CTA or venous ultrasound Had prostate cancer when he was diagnosed with PEs and DVTs Recommend getting outpatient workup done for thrombophilia considering recurrent PEs and DVTs Possible BECKI secondary to vasomotor nephropathy Continue saline at 100 cc/hour Remote history of meth abuse Urine tox negative Prophylaxis: Xarelto Sepsis Screening Reassessment Date: Mar 20, 2025 Date of Service: Mar 20, 2025 Billing Provider: CELIA HERNÁNDEZ MD Common Visit Codes: [id number] INP/OBS CARE(HIGH) CELIA HERNÁNDEZ MD Mar 20, 2025 19:26
[2025-03-20] MEDS: GADOTERATE MEGLUMINE 7.5 MMOL/15 ML VIAL IV ONE (20:09)
--- NOTE | 2025-03-20 20:55 | RADIOLOGY REPORT ---
EXAM: MR MRI C SPINE HISTORY: left sided numbness COMPARISON: MR MRI LUMBAR SPINE on DOS: 03/20/25, MR MRI THORACIC SPINE on DOS: 03/20/25, CT CTA NECK on DOS: 03/25/23 TECHNIQUE: MRI was performed without and with IV contrast utilizing multiple appropriate imaging planes and pulse sequences. FINDINGS: Evaluation is mildly degraded by motion artifact. There is no acute displaced fracture. There is multilevel disc desiccation and loss of intervertebral disc height. The spinal cord is unremarkable. The paraspinal soft tissues are unremarkable. There is no abnormal enhancement. INTERVERTEBRAL DISCS: C2-C3: No disc herniation, central canal stenosis, or neuroforaminal stenosis. C3-C4: Uncovertebral hypertrophy contributes to at least mild bilateral neural foraminal narrowing. The spinal canal is patent. C4-C5: There is uncovertebral hypertrophy which contributes to at least mild bilateral neural foraminal narrowing. The spinal canal is patent. C5-C6: Uncovertebral hypertrophy contributes to moderate left neural foraminal narrowing. C6-C7: There is mild uncovertebral hypertrophy without significant spinal canal or neural foraminal stenosis. C7-T1: No disc herniation, central canal stenosis, or neuroforaminal stenosis. IMPRESSION: 1. Multilevel degenerative changes of the cervical spine as detailed.
--- NOTE | 2025-03-20 20:57 | RADIOLOGY REPORT ---
PROCEDURE: MR MRI HEAD INDICATION: left sided numbness EXAM DATE: 03/20/2025 05:44 PM COMPARISON: CT CT HEAD on DOS: 03/19/25 TECHNIQUE: MRI of the brain with and without intravenous contrast. FINDINGS: Diffusion weighted images of the brain demonstrate no evidence of acute infarction. There is no evidence of acute intracranial hemorrhage, extra-axial collection, mass effect, midline shift, herniation or hydrocephalus. The ventricles, sulci and cisterns appear age appropriate. The signal intensities of the brain parenchyma are within normal limits. There are no signal abnormalities on the susceptibility weighted sequences. Right vertebral artery is diminutive and likely terminates at the PICA. Anterior and posterior circulation intracranial vessels otherwise widely patent with no significant stenosis, aneurysm, or vascular malformation The visualized paranasal sinuses and mastoid air cells are clear. The surrounding soft tissues and osseous structures are unremarkable. No abnormal intracranial enhancement. IMPRESSION: 1. No evidence of acute infarction, intracranial hemorrhage, abnormal enhancement, mass lesion or hydrocephalus.
--- NOTE | 2025-03-20 21:01 | RADIOLOGY REPORT ---
EXAM: MR MRI LUMBAR SPINE CLINICAL HISTORY: left sided numbness COMPARISON: MR MRI C SPINE on DOS: 03/20/25 TECHNIQUE: MRI imaging of the lumbar was performed on a MRI imaging system without and with intravenous contrast. FINDINGS: There is no acute fracture. There is edema and enhancement across the opposing endplates and involving the L5-S1 vertebral bodies. There is grade 1 anterolisthesis of L5 on S1. There is multilevel disc desiccation and loss of intervertebral disc height. The conus terminates at L1 and is unremarkable in appearance. The paraspinal soft tissues are unremarkable. At the T12-L1 level, there is no evidence of central spinal canal or neuroforaminal stenosis. At the L1-L2 level, there is facet arthropathy without significant spinal canal or neural foraminal stenosis. At the L2-L3 level, there is facet arthropathy without significant spinal canal or neural foraminal stenosis. At the L3-L4 level, a mild broad-based disc protrusion effaces the thecal sac. There is facet arthropathy without significant spinal canal or neural foraminal stenosis. At the L4-L5 level, there is a minimal left eccentric disc protrusion without significant spinal canal or neural foraminal stenosis. At the L5-S1 level, there is grade 1 anterolisthesis. There is severe bilateral neural foraminal stenosis. IMPRESSION: 1. Grade 1 anterolisthesis of L5 on S1 with loss of intervertebral disc height and edema and enhancement across the opposing vertebral bodies. While findings may be degenerative in etiology, clinical correlation is suggested to exclude discitis/osteomyelitis. 2. Degenerative changes of the lumbar spine as detailed.
--- NOTE | 2025-03-20 21:04 | RADIOLOGY REPORT ---
EXAM: MR MRI THORACIC SPINE CLINICAL HISTORY: left sided numbness COMPARISON: MR MRI C SPINE on DOS: 03/20/25, MR MRI LUMBAR SPINE on DOS: 03/20/25, XR CHEST 1 VIEW on DOS: 06/07/24, CTA CHEST on DOS: 03/24/24, XR CHEST 2 VIEWS on DOS: 03/24/24 TECHNIQUE: MRI imaging of the thoracic spine was performed on a MR imaging system without and with intravenous contrast. FINDINGS: There is no acute displaced fracture. There is mild loss of intervertebral disc height with endplate degenerative changes. There is no evidence of significant spinal canal or neural foraminal narrowing. The paraspinal soft tissues are unremarkable. There are dependent atelectatic changes. There is no abnormal enhancement. IMPRESSION: 1. No acute abnormality identified within the thoracic spine.
[2025-03-21 02:00] VITALS: BP 133/75; PULSE 67; RESP 13; TEMP 97; O2SAT 95
[2025-03-21] MEDS: HYDROcodone/acetaminophen 5mg/325mg tablet PO PRN (04:11)
[2025-03-21 06:00] VITALS: BP 133/74; PULSE 73; RESP 18; TEMP 98.1; O2SAT 98
[2025-03-21 06:56] LABS: APTT 31 SECONDS (22-32); INR 1.1 INR; MEAN PLATELET VOLUME 8.3 FL (7.4-10.4); RED CELL DISTRIBUTION WIDTH 13.9 % (11.5-14.5)
[2025-03-21 07:06] LABS: CREATININE 1.17 MG/DL (0.60-1.10); PHOSPHORUS 4.1 MG/DL (2.3-4.5); TOTAL CARBON DIOXIDE 31.5 MMOL/L (24-32); eCRCL 69 ML/MIN; eGFR 63 ML/MIN
[2025-03-21 08:00] VITALS: RESP 18; O2SAT 94
[2025-03-21] MEDS: magnesium hydroxide 30ml (MOM) UD suspension PO PRN (08:04)
[2025-03-21 08:58] VITALS: PULSE 82; RESP 18; O2SAT 92
[2025-03-21 11:00] VITALS: BP 143/83; PULSE 93; RESP 18; RESP 20; TEMP 96.9; O2SAT 93; O2SAT 97
[2025-03-21] MEDS ORDERED: DAPA10TA PO (13:05)
--- NOTE | 2025-03-21 19:11 | DISCHARGE SUMMARY ---
Discharge Summary Providers to ~ no new complaint today asking to be discharged home Discharge Summary Assessment Chest pain, musculoskeletal Left side of the rib cage paresthesia Left lower extremity paresthesia History of PE and DVT History of prostate cancer Chronic kidney disease History of methamphetamine abuse, clean now Admission Diagnosis: CHEST PAIN Admission Diagnosis Comment: Chest pain, musculoskeletal Left side of the rib cage paresthesia Left lower extremity paresthesia History of PE and DVT History of prostate cancer Chronic kidney disease History of methamphetamine abuse, clean now Hospital Course DATE OF ADMISSION: March 17, 2025 DATE OF DISCHARGE: May 21, 2025 Discharge Diagnosis\\Comment: Chest pain, musculoskeletal Left side of the rib cage paresthesia Left lower extremity paresthesia History of PE and DVT History of prostate cancer Chronic kidney disease History of methamphetamine abuse, clean now Operations\\Procedures: Non Consultants: Virtual neurologist Complications: Non Condition on DC: Stable Discharge Summary: This 64-year-old male presented to the ER with a chief concern of pain below the ribcage bilaterally on the anterior side. He mentioned that it is on and off for the last one year and is sharp shooting kind of pain. He usually gets the pain when he turns from [id number] and when he bends a lot while using the toilet paper. Mentions it as "I get pain when I turn the wrong way". Denies any pain with walking or at rest. Mentioned that the pain lasts for few minutes to hours. Had one episode of sharp left-sided chest pain that lasted for 2-3 seconds about few days back and it happened while he was at rest. Also, he has a new onset numbness and tingling sensation below the ribs on the left side. He noticed it when he woke up in the morning and touched it but could not feel it the normal way. The numbness persisted for the last three days. He also complained of on and off pain, numbness and tingling sensation along the posterior leg from hip to calf on the left side. It occurs with movement and lasts for few minutes and this has been there for the last 2-3 weeks. Sometimes has neck pain with the movement. Complains of occasional shortness of breath when he suddenly moves. Denies any increasing chest pain with a deep inspiration. Denies any trauma. Had one episode of fever few days back. Denies any jaw pain, nausea or vomiting, diarrhea, dizziness or fall, dysuria, abdominal pain or any other complaints. Generally walks by himself. Mentioned that he was recently diagnosed with right-sided epididymitis but outpatient f/u with urologist- denied that diagnosis. He also got a CT scan done outpatient for right-sided groin pain but was told that he has some colon thickening and he denied any colonoscopy in the past. Denies any diarrhea or bloody stool. Mentioned that he had diarrhea about few days back then had constipation today had brown stool. Complains of chronic right-sided groin pressure and has a right-sided undescended testis. Mentioned that he was 1st diagnosed with PE and DVT in 2018 and was given Xarelto. Mentioned that he was not adherent to the medication and he had recurrent PE in 2022. Now, mentioned that he continues to take Xarelto. He is unsure about any workup done for unprovoked DVT/PV. But, he also was diagnosed with prostate cancer in 2020. Denies any previous significant cardiac history. Mentioned that he was told he had a heart attack but then was told that it was secondary to PE in 2018. To admission patient was extensively evaluated and treated today he has no complaint asking to be discharged home, he will be discharged in stable condition, medication reconciled, follow-up PCP Cardiology in the morning today on physical exam, Vital signs, stable ,afebrile. Pulse Oximetry reflects adequate oxygenation. General: well developed, well nourished. Awake , alert, and oriented x4, resting comfortably in the bed, in no acute distress . Skin: Warm, dry, no pallor, no rash or petechiae. HEENT: Atraumatic, normocephalic, EOMI, anicteric sclera B; pink conjunctiva; PERRLA, normal oropharynx, moist oral and nasal mucosa. Tympanic membrane , nose , throat clear. Neck: Trachea midline. Supple, full range of motion, no JVD, bruit , hepatojugular reflex , lymphadenopathy or masses, or other lesions Cardiac: Regular rhythm, regular rate no murmurs, rubs, or gallops. Normal S1 and S2, no S3 noticed. PMI is normal. Respiratory: Equal breath sounds bilaterally, no tachypnea; lungs clear to auscultation bilaterally, no wheezing ,rub or rales, or crackles. Chest wall is symmetric and without deformity. No signs of trauma. Chest wall is nontender. No signs of respiratory distress. Resonance is normal upon percussion bilaterally. Gastrointestinal: Abdomen symmetric, non-distended, soft, non-tender, normal bowel sounds x4 quadrant, normoactive, no hepatosplenomegaly , no masses , no bruit, no flank pain bilaterally. No voluntary guarding, rebound, or rigidity. No tenderness to percussion. No pulsatile masses. Equal femoral pulses. No Woodruff's sign or McBurney point tenderness. Back; no CVA tenderness bilaterally, no deformities. Neck and back are without deformity as well. No tenderness noted on palpation of the spinous processes. Spinous processes are midline. Cervical, thoracic, and lumbar paraspinal muscles are not tender and are without spasm. : normal external genitalia, without lesions, swelling, masses or tenderness. Musculoskeletal: Extremities, normal range of motion, non-tender, muscle strength 5/5 x 4. Negative Homans signs bilaterally on lower extremity. Distal pulses full symmetrical, no clubbing, cyanosis , edema. Neurological: Speech is clear, alert, and oriented x 4. No motor or sensory deficit, deep tendon reflexes normal, cerebellar intact. Cranial nerves II-XII intact. Psych: Alert and or appropriate, normal affect. Vascular: Good distal pulses, which are equal x4; capillary refill less than 2 seconds. Lymphatic, no lymphadenopathy. *Problems/Diagnosis: (1) Paresthesias Status: Acute (2) Chest pain Status: Acute Total Time Spent on D/C: > 30 Minutes Date of Service: Mar 21, 2025 Billing Provider: CELIA HERNÁNDEZ MD Common Visit Codes: 71353-QXB/OBS DISCH DAY >30min CELIA HERNÁNDEZ MD Mar 21, 2025 19:11
== END 2025-03-21 13:54 | disposition home or self-care (01) | DRG 203 ==
LOC: ER 18:52 → ED HOLD 22:24 → EDBEDREQ 03-19 04:03 → PCU 3S 03-19 04:22
PROVIDERS: ADMIT Internal Medicine; ATTEND Family Medicine
PROC: 4A02XM4 Measurement of Cardiac Total Activity, External Approach (ICD-10-PCS; principal; 2025-03-19)
PROC: 3E033HZ Introduction of Radioactive Substance into Peripheral Vein, Percutaneous Approach (ICD-10-PCS; 2025-03-19)
DX: R07.89 Other chest pain (principal); F15.10 Other stimulant abuse, uncomplicated; N18.9 Chronic kidney disease, unspecified; N45.1 Epididymitis; Z85.46 Personal history of malignant neoplasm of prostate; Z86.711 Personal history of pulmonary embolism; Z86.718 Personal history of other venous thrombosis and embolism; Q53.10 Unspecified undescended testicle, unilateral
CPT/HCPCS: 36415; 70450; 70553; 71045; 72156; 72157; 72158; 78452; 80053; 80061; 80305; 81003; 82607; 83036; 83690; 83735; 83880; 84100; 84443; 84484; 85025; 85379; 85610; 85651; 85730; 87081; 93005; 93017; 93306; 94640; 94760; 99285; A4615; A9500; G0378; J2405; J2785; J7030